=== PATIENT | male | born 1970 | race Hispanic/Latino ===

== ENCOUNTER 2021-07-16 08:21 | Outpatient (CLI) | payer OTHER | END 2021-07-16 08:22 | disposition home or self-care (01) | LOC: BICRAD 08:21 | PROVIDERS: ATTEND Family Medicine | DX: M25.532 Pain in left wrist (principal); M19.032 Primary osteoarthritis, left wrist; M79.89 Other specified soft tissue disorders ==

== ENCOUNTER 2021-08-24 08:10 | Outpatient (CLI) | payer OTHER | END 2021-08-24 08:11 | disposition home or self-care (01) | LOC: BICRAD 08:10 | PROVIDERS: ATTEND Family Medicine | DX: M25.532 Pain in left wrist (principal) ==